=== PATIENT | female | born 2000 | race Caucasian/White ===

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

== ENCOUNTER 2021-02-20 00:42 | Inpatient (IN) | payer MEDICAID, SELFPAY ==
[2021-02-19 22:29] VITALS: BP 132/77; TEMP 36.4
[2021-02-19 22:30] VITALS: PULSE 113; O2SAT 98
[2021-02-19 22:36] VITALS: BMI 29.7
[2021-02-19 23:21] LABS: ROM Internal Control Test YES-OK TO RESULT pt. (Internal QC); ROM Patient Test Negative (Negative)
[2021-02-20] VITALS (18 sets, daily range): BP systolic 102–133; BP diastolic 44–72; PULSE 68–202; RESP 16–18; TEMP 35.9–36.8; O2SAT 84–100
[2021-02-20 00:46] LABS: ROM Internal Control Test YES-OK TO RESULT pt. (Internal QC)
[2021-02-20 00:47] LABS: ROM Patient Test POSITIVE (Negative)
[2021-02-20] MEDS: Oxytocin 10 UNITS/ML Vial IM (01:28)
--- NOTE | 2021-02-20 01:35 | PCM.HP.OB ---
HPI - General General Date of Admission: 02/20/21 HPI Narrative NATHAN YU, is a 21 F who presents at 39w4d by LMP. Presented to labor and delivery in early labor and rapid progression to active labor and precipitous delivery. Maternal Data Information JAYDON Calculator Estimated Delivery Date Method Current WG Current Estimate 02/23/21 Manual 39w 4d PFSH PFSH Medical History (Updated 02/20/21 @ 01:42 by Adrianna Jacob CNM) Asthma MTHFR gene mutation Home Medications Prenatabs FA 1 tab PO DAILY 03/04/18 [History Last Taken 03/08/18] aspirin 81 mg PO DAILY 02/19/21 [History Last Taken Unknown] ferrous sulfate 325 mg PO DAILY 02/19/21 [History Last Taken Unknown] folic acid 1 mg PO DAILY 02/19/21 [History Last Taken Unknown] Allergy/AdvReac Type Severity Reaction Status Date / Time adhesive tape AdvReac Other Verified 02/19/21 22:38 Social History Smoking Status: Never smoker History Elective abortions Hx Para 1 Spontaneous abortions Hx # Term Pregnancies Ectopic pregnancies Hx # Pregnancies Multiple births # of living children Vital Signs Vital Signs Vital Signs: 02/19/21 22:29 02/19/21 22:30 02/20/21 01:16 Temperature 97.5 F L Temperature Source Temporal Pulse Rate 113 H 96 Blood Pressure 132/77 H 121/65 H BP Systolic 132 121 BP Diastolic 77 65 Pulse Ox 98 02/20/21 01:23 02/20/21 01:28 02/20/21 01:31 Temperature Temperature Source Pulse Rate 88 202 H 84 Blood Pressure 129/66 H BP Systolic 129 BP Diastolic 66 Pulse Ox 100 84 Weight Weight: 157 lb 8 oz Body Mass Index (BMI) 29.7 Labs Labs Labs: Blood Type A POSITIVE Antibody Screen NEGATIVE Hct 35.9 % (37-47) L Hgb 11.6 g/dl (12.0-15.0) L Rhogam given: No Rubella Immune HBsAG negative HepC negative RPR negative HIV negative A positive GC/CT negative GBS positive Assessment & Plan (1) Active labor at term: (2) History of hypothyroidism: (3) MTHFR gene mutation: (4) History of depression: (5) Positive GBS test: PLAN: 1) Admit to labor and delivery 2) Routine labs 3) GBS propylaxis
--- NOTE | 2021-02-20 01:43 | EX.PCM.OBRPT ---
Maternal Data Information JAYDON Calculator Estimated Delivery Date Method Current WG Current Estimate 02/23/21 Manual 39w 4d Vaginal Delivery Maternal Presentation Maternal Presentation: Active Labor and Spontaneous Rupture of Membranes Operative Information Date of Procedure: 02/20/21 Pre-Operative Diagnosis: Active labor Post-Operative Diagnosis: Precipitous delivery Surgery / Procedure Performed: Spontaneous Vaginal Delivery Type of Anesthesia: None Estimated Blood Loss: 300ml Time of Delivery: 01:03 Findings Description of Procedure: Admitted to labor and delivery at 5cm with rapid progression to complete dilation. Called to labor and delivery for . While en route precipitous vaginal delivery of male by Victorina Brink RN. delivered without complication, APGARS 8,9. Upon arrival mom and baby stable. Placenta delivered with maternal effort via arline, intact, 3 vessel cord. Perineum inspected and revealed 1st degree perineal laceration, repaired with consent without anesthesia, 2 figure of eight sutures. Vaginal sweep completed. IM Pitocin for 3rd stage management. Sponge and instrument count correct. Mom and baby stable, family bonding well. notified of delivery. Presentation: Vertex Amniotic Membrane Rupture Type: Spontaneous Amniotic Fluid Description: Clear Placental Delivery Description: Spontaneous Placenta Disposition: [facility] Cord Vessel Description: 3 Vessels Cord Entanglement: None A Gender: Male (1 minute): 8 (5 minute): 9 Delayed Cord Clamping: No Post Vaginal Delivery Medications Given After Delivery: - (IM pitocin) Episiotomy Description: None Laceration: Perineal Extension/lac and 1st degree Complication Complications: - (precipitous delivery. Untreated GBS)
[2021-02-20 02:01] LABS: Absolute Lymphocyte Count 1.89 X10^3/uL (0.83-4.51); Absolute Neutrophil Count 14.8 X10^3/uL (2.0-7.7); Basophil# 0.06 X10^3/uL; Basophil% 0.3 % (0-1); Eosinophil# 0.06 X10^3/uL; Eosinophils% 0.3 % (0-5); Hematocrit 32.9 % (37-47); Hemoglobin 10.5 g/dL (12.0-15.0); Lymphocyte # 1.89 X10^3/ul (0.83-4.51); Lymphocyte % 10.4 % (19-41); Mean Corp Hgb Conc 31.9 g/dL (32-36); Mean Corpuscular Hgb 26.3 pg (27.0-32.0); Mean Corpuscular Volume 82.3 fL (81-99); Mean Platelet Vol. 10.6 fl (6.2-12.0); Monocyte# 1.22 X10^3/uL; Monocyte% 6.7 % (0-10); NRBC Flagged by Analyzer 0 % (0-5); Neutrophil # 14.81 X10^3/uL (2.7-7.7); Neutrophil % 81.4 % (47-70); Platelet Count 302 K/mm3 (150-450); RBC Distribution Width SD 41.7 fl (35.1-43.9); White Blood Count 18.2 K/mm3 (4.4-11.0)
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
--- NOTE | 2021-02-20 06:40 | NUR.TO.PHY ---
Patient states that she brought tylenol with her to hospital and took two tylenol around 0420.
[2021-02-20] MEDS: Ibuprofen 600 MG Tablet PO ×2 (08:35→16:32)
[2021-02-20] MEDS: Prenatal Vits Tablet 1 TABLET PO (12:42)
--- NOTE | 2021-02-20 21:09 | NURSING ---
2049- Pt. called RN into room because she passed a larger clot. This RN in room to assess. Clot approx. the size of a hard boil egg passed. No gushes of bleeding noted. Vital signs were WNL at most recent check. Pt. informed to call out for this RN if any more clots pass for another vital signs and fundal check.
[2021-02-21 01:00] VITALS: BP 119/67; PULSE 82; RESP 14; TEMP 36.3; O2SAT 97
[2021-02-21] MEDS: Ibuprofen 600 MG Tablet PO (01:57)
--- NOTE | 2021-02-21 08:56 | PCM.PN.OB ---
Subjective Subjective Patient seen at bedside. Feeling good. Ambulating and voiding without difficulty. Denies any pain. Lochia minimal. Bottle feeding infant without difficulty. Denies any headache, vision changes, SOB or CP. Desires discharge home today. Objective Data Objective Data Vital Signs: Vital Signs Temp Pulse Resp BP Pulse Ox 97.3 F L 82 14 119/67 97 02/21/21 01:00 02/21/21 01:00 02/21/21 01:00 02/21/21 01:00 02/21/21 01:00 Oxygen Delivery Method Room Air Weight: 157 lb 8 oz Body Mass Index (BMI) 29.7 Lab / Micro Data Result Diagrams: 02/20/21 01:47 Micro: Microbiology 02/20/21 01:44 Nasal Secretion SARS-CoV-2 Antigen (Rapid) - Final Physical Exam Const alert and no apparent distress General Appearance: cooperative and comfortable Exam Limitations: no limitations HEENT normocephalic Eyes General Eye: normal appearance of both eyes Neck full ROM General: normal visual inspection Chest Chest: symmetrical chest wall rise Resp normal respiratory effort and normal air movement Effort and Inspection: symmetric chest movement Auscultation: clear to auscultation bilaterally Cardio regular rate and regular rhythm GI normal to inspection, nondistended, normoactive bowel sounds Back/Spine normal ROM Extremity full ROM and no calf tenderness General Extremity: normal exam except as noted Skin no rashes or lesions noted Neuro CN's II-XII intact bilaterally Psych mental status grossly normal Assessment & Plan (1) (spontaneous vaginal delivery): PLAN: PPD 2 Routine care Discharge home with follow up in office
[2021-02-21 09:00] VITALS: BP 121/67; PULSE 78; RESP 16; TEMP 36.2; O2SAT 97
[2021-02-21] MEDS: Acetaminophen 500 MG Tablet 1000 MG PO (10:27)
[2021-02-21] MEDS: Prenatal Vits Tablet 1 TABLET PO (10:27)
--- NOTE | 2021-02-21 12:45 | PCM.DC ---
Discharge Instructions Diet Discharge Diet: No restrictions Activity May resume sexual activity in: 6-8 weeks Weight Bearing Status: Weight bearing as tolerated Dressing / Incision Call your doctor if you observe: Fever of 101 or Higher, Inability to urinate, Using more than 1 pad per hour, Shortness of breath, Chest pain, Calf discomfort and Uncontrolled pain Follow Up Care Please Follow Up With: Indira Stock CNM When: 2 weeks virtual visit/ 6 weeks in office Test Results: Test results from this visit will be discussed in further detail at your follow-up appointment, if applicable. Discharge Plan Admission Admit Date/Time: 02/20/21 00:42 Primary Reason for Your Visit: Labor and delivery Attending Provider: Adrianna Jacob Primary Care Provider: Baylee Nguyen NP Discharge Orders/Prescriptions Prescriptions: Continued Prenatabs FA 1 TABLET tablet 1 tab PO DAILY RF: 0 ferrous sulfate 325 mg (65 mg iron) tablet,delayed release (DR/EC) 325 mg PO DAILY RF: 0 Discontinued aspirin 81 mg tablet,chewable 81 mg PO DAILY RF: 0 No Action folic acid 1 mg tablet 1 mg PO DAILY RF: 0 Referrals / Follow Up: Baylee Nguyen NP, [facility] [Primary Care Provider] - Disposition Disposition (needs filled in before D/C Order can be placed): Home, Self Care
[2021-02-21 13:34] VITALS: BP 122/68; PULSE 85; RESP 16; TEMP 36.6; O2SAT 97
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
== END 2021-02-21 14:45 | disposition home or self-care (01) | DRG 560 ==
LOC: WPOUT 00:44 → WP 00:44
PROVIDERS: Admitting Provider Advanced Practice Midwife; PCP Nurse Practitioner Family; Visit Provider Advanced Practice Midwife
DX: O42.92 Full-term premature rupture of membranes, unspecified as to length of time between rupture and onset of labor (principal); Z37.0 Single live birth; O62.3 Precipitate labor; O99.284 Endocrine, nutritional and metabolic diseases complicating childbirth; E72.12 Methylenetetrahydrofolate reductase deficiency; O99.824 Streptococcus B carrier state complicating childbirth; O70.0 First degree perineal laceration during delivery; Z3A.39 39 weeks gestation of pregnancy; Z79.82 Long term (current) use of aspirin
CPT/HCPCS: 59025; 59050; 84112; 85025; 86850; 86900; 86901; 87426; 99218; G0378

== ENCOUNTER 2022-03-14 05:53 | Day surgery (SDC) | payer MEDICAID, SELFPAY ==
--- NOTE | 2022-03-12 16:50 | PCM.HP.BLA ---
History and Physical Date of Admission: 03/14/22 Pre-Op History and Physical ? HPI: The patient is a 22 year old female presenting for pre-operative visit. She is scheduled for laparoscopic bilateral salpingectomy, for desires sterilization on 03/14/22. Procedure discussed along with risks, benefits and complications. Other alternatives discussed for management. Consent form signed? Yes. ? ? PAST MEDICAL HISTORY PAST MEDICAL HISTORY Diagnosis Date ? Antepartum anemia 12/16/2017 ? Asthma ? ? MTHFR gene mutation ? ? gene carrier ? depression ? ? ? PAST SURGICAL HISTORY PAST SURGICAL HISTORY Procedure Laterality Date ? PAST SURGICAL HISTORY OF ? ? ? oral surgery ? ? ? CURRENT MEDICATIONS Current Outpatient Medications Medication Sig Dispense Refill ? albuterol HFA (PROVENTIL HFA, VENTOLIN HFA) 90 mcg/actuation inhaler Inhale 2 Puffs as instructed every 6 hours as needed for Wheezing/Shortness of Breath. (Patient not taking: Reported on 01/28/2022) 1 Inhaler 2 ? No current facility-administered medications for this visit. ? ? ALLERGIES: Patient has no known allergies. ? PERSONAL HISTORY: SOCIAL HISTORY Social History ? Tobacco Use ? Smoking status: Never ? Smokeless tobacco: Never Vaping Use ? Vaping Use: Never used Substance Use Topics ? Alcohol use: No ? Drug use: No ? FAMILY HISTORY: FAMILY HISTORY FAMILY HISTORY Problem Relation Age of Onset ? other (mthfr) Mother ? ? No Known Problems Father ? ? other (pcos) Sister ? ? No Known Problems Sister ? ? Heart Sister ? ? Heart Brother ? ? other (other) Maternal Grandmother ? ? No Known Problems Maternal Grandfather ? ? Diabetes Paternal Grandmother ? ? Stroke Paternal Grandfather ? ? No Known Problems Son ? ? ? REVIEW OF SYMPTOMS: negative except as noted above PHYSICAL EXAMINATION: ? VITALS: Blood pressure 112/64, weight 148 lb (67.1 kg), last menstrual period 02/27/2022, not currently . ? GENERAL: The patient is well nourished, well hydrated in no acute distress. , The patient is oriented to time, place, and person. NECK: full range of motion ? IMPRESSION: Desires sterilization ? PLAN: Laparoscopic bilateral salpingectomy ? Pt has been counseled on risks/benefits and alternatives of surgery including but not limited to anesthesia, bleeding, infection, injury to pelvic structures including bowel, bladder, ureters and vessels. Pt wishes to proceed with surgery at this time. Risk of regret reviewed. Declines LARCs. Understands this is permanent. ? Pre and post op instructions reviewed ? I have reviewed and updated past medical and surgical history, medications and allergies Carmlea Garcia MD ? Office Visit on 03/01/2022 Office Visit on 03/01/2022 Note shared with patient
--- NOTE | 2022-03-14 | FALS_PTH ---
PATIENT: NATHAN YU LOC: [facility] U#:[id number] AGE/SX: 22/F ROOM: RE03/14/[address]: Dr. Carmela Goetz, MDDOB: 2000 BED: DIS: 03/14/2022 SPEC #: [id number] RECD: 03/14/22 09:03 STATUS: RIP PAXTON #: [id number] TOÑO: 03/14/22 00:[address]: Carmela Goetz DEPT: SURGICAL PATHOLOGY RECD BY: Oliver Leal ENTERED: 03/14/22 12:31 SP TYPE: FALL TUBES OTHR DR: No Primary Care Phys Tissues: Fallopian tube Procedures: Surgery Specimen Level II HEADER OPERATION: Laparoscopic salpingectomy PRE-OP DIAGNOSIS: Elective sterilization TISSUE SUBMITTED: Bilateral fallopian tubes MICROSCOPIC DIAGNOSIS Bilateral fallopian tubes, salpingectomy: Bilateral fallopian tubes, no pathologic diagnosis. SJ:noel 03/15/2022 MICROSCOPIC DESCRIPTION Slides are reviewed. GROSS DESCRIPTION Received in fixative is one container labeled with the patient's name and designated bilateral fallopian tubes. The specimen consists of two fallopian tubes with an average length of 6 cm and has an average diameter of 0.7 cm. Both fallopian tubes have normal fimbriated ends. No mass lesions are identified. Wind Turbine Sheet Metal Worker sections are submitted in two cassettes as follows: 1 - one fallopian tube, 2 - the other fallopian tube. / AM:noel 03/14/2022 TC:4 CPT: 47055 x2
[2022-03-14 06:40] VITALS: BP 98/61; PULSE 54; RESP 18; TEMP 36.2; O2SAT 99; BMI 27.8
[2022-03-14 06:46] LABS: Hematocrit 41.5 % (37-47); Hemoglobin 13.3 g/dL (12.0-15.0); Mean Corpuscular Hgb 26.7 pg (27.0-32.0); Mean Corpuscular Volume 83.2 fL (81-99); Platelet Count 394 K/mm3 (150-450); RBC Distribution Width CV 13.5 % (11.6-14.6); RBC Distribution Width SD 41.4 fl (35.1-43.9); Red Blood Count 4.99 M/mm3 (4.2-5.4); White Blood Count 7.5 K/mm3 (4.4-11.0)
[2022-03-14 06:49] LABS: Internal QC Validated? YES +Cl - CLEAR BKGD; Pregnancy, Urine Negative Negative
[2022-03-14] MEDS: Lactated Ringers 1,000 ML 15 ML IV ×2 (06:56→08:00)
[2022-03-14] MEDS: Bupivacaine Mpf 0.5% 30 ML VIAL (07:38)
--- NOTE | 2022-03-14 08:06 | PCM.OPRPT ---
Report of Operation Date of Procedure: 03/14/22 Pre-Operative Diagnosis: desires sterilization Post-Operative Diagnosis: same Surgery/Procedure Performed:: Laparoscopic bilateral salpingectomy Description of Surgical Findings:: normal tubes and ovaries bilaterally. Surgeon: Carmela Goetz mixer slagman: None mixer slagman: DEBI Garza Special Medications: 0.5% marcaine Specimen's removed: bilateral fallopian tubes Drains: none Estimated Blood Loss (mL): 10cc Fluids Replaced: 1100 Description of Procedure: After informed consent was obtained patient was taken to the operating room she was placed in supine position she was given anesthesia. She was then placed in the [facility] stirrups and she was prepped and draped in normal sterile fashion. Bladder was drained prior to the start of procedure. At this time attention was turned to the vaginal portion where weighted speculum placed at posterior fornix vagina single-tooth tenaculum was used to gently grasp the internal the cervix. uterus was gently sounded to approximately 8cm. Uterine manipulator was placed without difficulty. Legs then placed in parallel with the abdomen the tenaculum and the weighted speculum were removed. 2 towel clamps were placed at level of umbilicus. Marcaine was injected infraumbilical and a small incision was made. The 5 mm trocar was placed under direct visualization. CO2 gas was used to insufflate the intra-abdominal cavity. Upon inspection no gross abnormalities appreciated- the uterus tubes and ovaries appeared to be normal. At this time then the LLQ and RLQ ports were placed First Marcaine was injected and small incision was made a knife and the 5 mm trocars were placed. At this time then tubes were traced back to the fimbriated ends. Enseal was used to coagulate and ligate along mesosalpinx bilaterally until tubes removed completely. Good hemostasis was appreciated. At this time procedure was deemed complete successful. The gas was desufflated on from the intra-abdominal cavity. The trochars were removed. Skin was closed using 4-0 Monocryl in a subcutaneous fashion. Dermabond glue was placed. Instrument lap and needle counts were correct ?2. The uterine manipulator was removed. Vaginal sweep was performed it was negative. There were no complications anticipated normal postoperative course for this patient. Grafts/Implants Used: none Procedure Start Time: 07:39 Procedure Stop Time: 08:03 Complications none Admit VTE Documentation VTE Present on Admission: Yes VTE Mechan Device Prophylaxis: SCD's VTE Pharm Prophylaxis ordered?: No Reason prophylaxis not ordered:: Procedure Not Indicated
--- NOTE | 2022-03-14 08:09 | DCINST_ITS ---
Discharge Instructions Procedure Other Diet Discharge Diet: No restrictions Activity May resume sexual activity in: 2 weeks Lifting Restrictions: 20-25 lbs Dressing / Incision Call your doctor if your incision/area has: Continuous Slow Oozing, Sudden Increased Bleeding, Increased Pain/ Swelling, Increased Redness, Foul Smelling Discharge and Swelling at the incision site Call your doctor if you observe: Fever of 101 or Higher, Inability to urinate, Inability to have a bowel movement, Using more than 1 pad per hour and Uncontrolled pain Additional Dressing/Incision Instructions:: You have skin glue over your incision sites, do not pick off. You may shower and let the soap and water run over the incision sites and dab dry. Follow Up Care Please Follow Up With: Carmela Goetz MD When: 1-2 weeks post OP if you need an appointment please call [phone] Test Results: Test results from this visit will be discussed in further detail at your follow- up appointment, if applicable. Discharge Plan Admission Attending Provider: Carmela Goetz Primary Care Provider: Care Physician,Yamileth Primary Discharge Orders/Prescriptions Prescriptions: No Action Probiotic 10 billion cell Capsule 10,000 mmu cells PO PRN PRN (Reason: WHEN REMEMBERS) Referrals / Follow Up: Care Physician,Yamileth Primary [Primary Care Provider] - Disposition Disposition (needs filled in before D/C Order can be placed): Home, Self Care
[2022-03-14 08:19] VITALS: BP 110/60; BP 98/61; PULSE 87; RESP 16; TEMP 36.1; O2SAT 98
[2022-03-14 08:30] VITALS: BP 107/59; BP 98/61; PULSE 63; RESP 16; O2SAT 99
[2022-03-14 08:39] VITALS: BP 108/58; BP 98/61; PULSE 79; RESP 16; O2SAT 100
[2022-03-14 08:48] VITALS: BP 119/89; BP 98/61; PULSE 65; RESP 16; TEMP 36.2; O2SAT 100
[2022-03-14 09:24] VITALS: BP 102/60; BP 98/61; PULSE 63; RESP 16; TEMP 36.8; O2SAT 100
== END 2022-03-14 09:28 | disposition home or self-care (01) ==
LOC: SDC 05:57 → AC 05:57
PROVIDERS: Referring Provider Obstetrics & Gynecology; Visit Provider Obstetrics & Gynecology
PROC: (CPT 58661; principal; 2022-03-14 07:15)
DX: Z30.2 Encounter for sterilization (principal); Z14.8 Genetic carrier of other disease
CPT/HCPCS: 58661; 00840; 81025; 85027; 88302; J7120; C1760; J2405